=== PATIENT | female | born 1990 | race American Indian/Alaskan Native ===

== ENCOUNTER 2017-08-19 18:46 | Emergency (ER) | payer SELFPAY ==
--- NOTE | 2017-08-19 21:23 | Emergency Department Report ---
ED Psych HPI - General Stated Complaint: SUICIDAL Time Seen by Provider: 08/19/17 20:27 - History of Present Illness MD Complaint: suicidal ideation, feels depressed -: days(s) (1) Associated Psychiatric Symptoms: suicidal ideation Quality: constant Improves With: none Worsens With: none Associated Symptoms: denies: confusion, headache, shortness of breath, nausea, vomiting Treatments Prior to Arrival: placed on mental he If Self Harm: self-inflicted trauma (patient has cut her left arm numerous times. Several of these cuts do require closure. Patient states her boyfriend broke up with her in the last several days and this is the impetus for her actions) - Related Data Previous Rx's Medication Instructions Recorded Last Taken Type Ibuprofen [Motrin] 600 mg PO Q8H PRN #10 tablet 08/19/17 Unknown Rx ED Review of Systems ROS: Stated complaint: SUICIDAL Other details as noted in HPI Comment: All other systems reviewed and negative ED Past Medical Hx - Medications Home Medications: Home Medications Medication Instructions Recorded Confirmed Last Taken Type Ibuprofen [Motrin] 600 mg PO Q8H PRN #10 tablet 08/19/17 Unknown Rx ED Physical Exam - General General appearance: alert, in no apparent distress - Head Head exam: Present: atraumatic, normocephalic - Eye Eye exam: Present: normal appearance - ENT ENT exam: Present: mucous membranes moist - Neck Neck exam: Present: normal inspection - Respiratory Respiratory exam: Present: normal lung sounds bilaterally. Absent: respiratory distress - Cardiovascular Cardiovascular Exam: Present: regular rate, normal rhythm. Absent: systolic murmur, diastolic murmur, rubs, gallop - GI/Abdominal GI/Abdominal exam: Present: soft, normal bowel sounds - Extremities Exam Extremities exam: Present: normal inspection, other (there are numerous superficial abrasions as well as superficial lacerations on the left forearm approximate 4 of these areas do require closure with there are at least Dermabond.) - Back Exam Back exam: Present: normal inspection - Neurological Exam Neurological exam: Present: alert, oriented X3 - Psychiatric Psychiatric exam: Present: normal affect, depressed - Skin Skin exam: Present: warm, dry, intact, normal color. Absent: rash ED Course Vital Signs 08/19/17 22:38 Temperature 98.3 F Pulse Rate 71 Respiratory 18 Rate Blood Pressure 122/81 [Left] O2 Sat by Pulse 99 Oximetry - Laceration /Wound Repair Left Upper Volar Arm Wound Location: upper extremity Wound Length (cm): 8 (there are approximately 506 lacerations that need repair) Wound's Depth, Shape: superficial Wound Explored: clean Wound Repaired With: Steri-strips, Dermabond Sterile Dressing Applied?: Yes ED Medical Decision Making - Lab Data Result diagrams: 08/19/17 21:30 08/19/17 21:30 - Medical Decision Making Buck is a 27-year-old female who has a history of depression and cutting who cut herself several times today secondary to a boyfriend breaking up with her. Patient is depressed but is denying being suicidal at this time. Patient was seen by psych evaluators today and she was deemed not a candidate for 1013. Critical care attestation.: If time is entered above; I have spent that time in minutes in the direct care of this critically ill patient, excluding procedure time. ED Disposition Clinical Impression: Self mutilating behavior, Laceration Depressed Qualifiers: Depression Type: unspecified Qualified Code(s): F32.9 - Major depressive disorder, single episode, unspecified Disposition: DC-01 TO HOME OR SELFCARE Is pt being admited?: No Does the pt Need Aspirin: No Condition: Stable Instructions: Laceration (ED), Skin Adhesive Care (ED) Prescriptions: Ibuprofen [Motrin] 600 mg PO Q8H PRN #10 tablet PRN Reason: Pain Referrals: PRIMARY CARE, [Primary Care Provider] - 3-5 Days
[2017-08-19] MEDS ORDERED: MOTRIN PO ONE (21:24)
[2017-08-19] MEDS ORDERED: NACL 0.9% 500 ML IR ONE (21:42)
[2017-08-19 21:44] LABS: Basophils # (Auto) 0.1 K/mm3 (0.0-0.1); Eosinophils # (Auto) 0.3 K/mm3 (0.0-0.4); Eosinophils % (Auto) 3.2 % (0.0-4.3); Hematocrit 38.5 % (30.3-42.9); Hemoglobin 12.4 gm/dl (10.1-14.3); Lymphocytes # (Auto) 2.5 K/mm3 (1.2-5.4); Lymphocytes % (Auto) 31.2 % (13.4-35.0); Mean Corpuscular HGB Conc 32 % (30-34); Mean Corpuscular Hemoglobin 28 pg (28-32); Mean Corpuscular Volume 85 fl (79-97); Monocytes # (Auto) 0.6 K/mm3 (0.0-0.8); Monocytes % (Auto) 7.3 % (0.0-7.3); Platelet Count 257 K/mm3 (140-440); Red Blood Count 4.52 M/mm3 (3.65-5.03); Red Cell Distribution Width 13.1 % (13.2-15.2)
[2017-08-19 22:02] LABS: BUN/Creatinine Ratio 20; Blood Urea Nitrogen 10 mg/dL (7-17); Calcium 9.2 mg/dL (8.4-10.2); Hemolysis Index 3
[2017-08-19 22:39] VITALS: BP 122/81
[2017-08-20 01:49] LABS: Bacteria,Urine 1+ /HPF (Negative); Bilirubin,Urine NEG (Negative); Blood,Urine NEG (Negative); Color,Urine Yellow (Yellow); Mucus,Urine FEW /HPF; Protein,Urine <15 mg/dL mg/dL (Negative); Urobilinogen,Urine < 2.0 mg/dL (<2.0)
[2017-08-20 01:56] LABS: Amphetamine Screen,Urine PRESUMPTIVE NEGATIVE; Benzodiazepines Screen,Urine PRESUMPTIVE NEGATIVE; Cannabinoid Screen,Urine PRESUMPTIVE NEGATIVE; Cocaine Screen,Urine PRESUMPTIVE NEGATIVE; Methadone Screen,Urine PRESUMPTIVE NEGATIVE; Opiate Screen,Urine PRESUMPTIVE NEGATIVE
[2017-08-20 02:15] LABS: RBC,Urine < 1.0 /HPF (0.0-6.0)
== END 2017-08-20 00:06 | disposition home or self-care (01) ==
LOC: ED 18:46
DX: S41.112A Laceration without foreign body of left upper arm, initial encounter (principal); F32.9 Major depressive disorder, single episode, unspecified; T14.91XA Suicide attempt, initial encounter; X78.8XXA Intentional self-harm by other sharp object, initial encounter; Y93.89 Activity, other specified; Y92.89 Other specified places as the place of occurrence of the external cause; Y99.8 Other external cause status; Z91.5 Personal history of self-harm
CPT/HCPCS: 12004; 36415; 80048; 80307; 81001; 84703; 85025; 99284; G0480; 80320

== ENCOUNTER 2019-01-25 22:39 | Emergency (ER) | payer SELFPAY ==
[2019-01-25 23:18] LABS: Basophils # (Auto) 0.1 K/mm3 (0.0-0.1); Basophils % (Auto) 0.6 % (0.0-1.8); Eosinophils % (Auto) 0.5 % (0.0-4.3); Hematocrit 32.8 % (30.3-42.9); Hemoglobin 11.2 gm/dl (10.1-14.3); Lymphocytes # (Auto) 1.4 K/mm3 (1.2-5.4); Lymphocytes % (Auto) 13.8 % (13.4-35.0); Mean Corpuscular HGB Conc 34 % (30-34); Mean Corpuscular Volume 81 fl (79-97); Monocytes # (Auto) 1.2 K/mm3 (0.0-0.8); Monocytes % (Auto) 12.5 % (0.0-7.3); Platelet Count 374 K/mm3 (140-440); Red Blood Count 4.05 M/mm3 (3.65-5.03); Red Cell Distribution Width 14.2 % (13.2-15.2)
[2019-01-25 23:31] LABS: Alanine Aminotransferase 9 units/L (7-56); Albumin 3.8 g/dL (3.9-5); BUN/Creatinine Ratio 10; Blood Urea Nitrogen 5 mg/dL (7-17); Hemolysis Index 3
[2019-01-25] MEDS ORDERED: PEPCID IV ONE (23:58)
[2019-01-25] MEDS ORDERED: MORPHINE IV ONE (23:58)
[2019-01-25] MEDS ORDERED: ZOFRAN IV ONE (23:58)
[2019-01-26 00:28] LABS: Bacteria,Urine 2+ /HPF (Negative); Bilirubin,Urine NEG (Negative); Blood,Urine NEG (Negative); Color,Urine Amber (Yellow); Hyaline Casts,Urine 2 /LPF; Mucus,Urine 3+ /HPF
[2019-01-26] MEDS ORDERED: K-DUR PO ONE (01:31)
[2019-01-26] MEDS ORDERED: NACL 0.9% 1000 ML 1,000 ML IV ONE (01:32)
[2019-01-26] MEDS ORDERED: TYLENOL PO PRN (02:15)
[2019-01-26] MEDS ORDERED: NACL 0.9% 1000 ML IV ONE (02:15)
[2019-01-26] MEDS ORDERED: ZOFRAN ONE (02:32)
[2019-01-26] MEDS ORDERED: MORPHINE ONE (02:34)
--- NOTE | 2019-01-26 03:44 | Cat Scan Report ---
. CT of the abdomen and pelvis with contrast INDICATION: Right lower quadrant mass COMPARISON: None FINDINGS: Lung bases are clear. The liver, spleen, pancreas, adrenal glands and kidneys all appear no rmal. No definite gallbladder or biliary tree abnormality. No fluid or adenopathy in the upper abdome n. CT of the pelvis shows an 8.2 x 7.5 cm right lower quadrant mass. The shows both cystic and solid, en hancing components as well as peripheral calcification. There is surrounding fluid and inflammatory t issue as well as satellite lesions. There is moderate free fluid in the pelvis as well. The uterus an d left ovary show no definite abnormalities. There is no bowel obstruction. Suspicious of peritoneal implants in the pelvis as well. No adenopathy is seen. No skeletal metastases identified. IMPRESSION: While this is a young patient the CT findings suggest malignant ovarian neoplasm. Automated exposure control was utilized to diminish radiation dose. Signer Name: Isael Reyes MD Signed: 01/26/2019 3:40 AM Workstation Name: [id number]
[2019-01-26] MEDS: FLAGYL 500 MG/100 ML 500 MG/100 ML BAG IV SCH ×2 (05:13→06:33)
[2019-01-26] MEDS ORDERED: MAXIPIME/NS 2 GM/100 ML 2 GM/100 ML BAG IV SCH (06:00)
--- NOTE | 2019-01-26 06:32 | Emergency Department Report ---
ED Abdominal Pain HPI - General Chief Complaint: Abdominal Pain Stated Complaint: RIGHT LOWER ABD PAIN Time Seen by Provider: 01/25/19 23:40 Source: patient Mode of arrival: Ambulatory Limitations: No Limitations - History of Present Illness Initial Comments: Patient is nulliparous 28-year-old -British female with a medical history presents with a ED with acute onset of severe right lower quadrant pain that radiates to the suprapubic area, with nausea, vomiting, chills and fever for the last 2 days. Patient states that she initially experienced similar symptom over 2 months ago and was treated at the [facility] ER. Patient states that during that visit she was diagnosed with right lower quadrant mass under his problem. Transferred to [facility] where she was admitted for one week and underwent a surgical procedure that placed a draining tube on the right lower quadrant mass or abscess to drain it. Patient states that she was thereafter discharged from the home with a draining tube in place. Patient states that subsequently fell off and the wound sealed off. Patient states that the pain started getting worse and she ended up going to [facility] emergency department again where abdomen pelvis CT scan with contrast was performed which showed that the mass had increase in size and she was advised to follow-up at the [facility] where she had previously been evaluated for the same. Patient states that she didn't call the blood came back home and has been taking pain medications to alleviate her pain. Patient states that in the last 2 days the swelling and pain in the right lower quadrant area has worsened. Patient denies diarrhea, dizziness, low back pain, vaginal bleeding, vaginal discharge, chest pain, shortness of breath or cough and headache MD Complaint: abdominal pain, other (fever, chills, nausea and vomiting) -: Gradual, month(s) (2) Location: RLQ, suprapubic Radiation: RLQ, suprapubic Migration to: no migration Severity scale (0 -10): 7 Quality: aching, sharp Consistency: constant Improves With: nothing Worsens With: bowel movement, vomiting, movement Associated Symptoms: denies other symptoms, nausea, vomiting, fever, chills. denies: diarrhea, constipation, dysuria, hematemesis, hematochezia, melena, anorexia, other - Related Data Previous Rx's Medication Instructions Recorded Last Taken Type Ibuprofen [Motrin] 600 mg PO Q8H PRN #10 tablet 08/19/17 Unknown Rx Allergies Allergy/AdvReac Type Severity Reaction Status Date / Time No Known Allergies Allergy Verified 01/25/19 22:49 ED Review of Systems ROS: Stated complaint: RIGHT LOWER ABD PAIN Other details as noted in HPI Constitutional: chills, fever, weakness Eyes: denies: eye pain, eye discharge, vision change ENT: denies: ear pain, throat pain Respiratory: denies: cough, shortness of breath, wheezing Cardiovascular: denies: chest pain, palpitations Endocrine: no symptoms reported Gastrointestinal: abdominal pain (RLQ), nausea, vomiting. denies: diarrhea, constipation, hematemesis Genitourinary: denies: urgency, dysuria, discharge Musculoskeletal: denies: back pain, joint swelling, arthralgia Skin: denies: rash, lesions Neurological: denies: headache, weakness, paresthesias Psychiatric: denies: anxiety, depression Hematological/Lymphatic: denies: easy bleeding, easy bruising ED Past Medical Hx - Past Medical History Previous Medical History?: No Additional medical history: self mutilation - Surgical History Past Surgical History?: Yes Additional Surgical History: drain to mass but had fallen out - Social History Smoking Status: Never Smoker Substance Use Type: None - Medications Home Medications: Home Medications Medication Instructions Recorded Confirmed Last Taken Type Ibuprofen [Motrin] 600 mg PO Q8H PRN #10 tablet 08/19/17 Unknown Rx ED Physical Exam - General Limitations: No Limitations General appearance: alert, in no apparent distress - Head Head exam: Present: atraumatic, normocephalic, normal inspection - Eye Eye exam: Present: normal appearance, PERRL, EOMI. Absent: scleral icterus, conjunctival injection, nystagmus Pupils: Present: normal accommodation - ENT ENT exam: Present: normal exam, normal orophraynx, mucous membranes moist, TM's normal bilaterally, normal external ear exam - Neck Neck exam: Present: normal inspection, full ROM. Absent: tenderness - Respiratory Respiratory exam: Present: normal lung sounds bilaterally. Absent: respiratory distress, wheezes, rales, rhonchi, chest wall tenderness, accessory muscle use, decreased breath sounds, prolonged expiratory - Cardiovascular Cardiovascular Exam: Present: normal rhythm, tachycardia, normal heart sounds. Absent: systolic murmur, diastolic murmur, rubs, gallop - GI/Abdominal GI/Abdominal exam: Present: soft, tenderness (rlq), guarding, rebound, rigid, normal bowel sounds. Absent: hyperactive bowel sounds, hypoactive bowel sounds, organomegaly, mass - Rectal Rectal exam: Present: deferred - Extremities Exam Extremities exam: Present: normal inspection, full ROM, normal capillary refill - Back Exam Back exam: Present: normal inspection, full ROM. Absent: tenderness, CVA tenderness (R), CVA tenderness (L), muscle spasm, paraspinal tenderness, vertebral tenderness - Neurological Exam Neurological exam: Present: alert, oriented X3, CN II-XII intact, normal gait, reflexes normal - Psychiatric Psychiatric exam: Present: normal affect, normal mood, anxious - Skin Skin exam: Present: warm, dry, intact, normal color. Absent: rash ED Course Vital Signs 01/25/19 01/25/19 01/26/19 22:47 23:44 05:00 Temperature 100.4 F H 97.9 F Pulse Rate 148 H 129 H 107 H Respiratory 24 18 20 Rate Blood Pressure 129/78 Blood Pressure 123/79 112/70 [Left] O2 Sat by Pulse 99 100 100 Oximetry - Reevaluation(s) Reevaluation #1: 01/26/19 06:34 This is a 28-year-old -British female who presented to the ED with acute and persistent right lower quadrant pain. In the ED, patient is alert and oriented 3 and is not imminent distress but pain, tachycardic and febrile in triage. Labs were drawn and abdomen and pelvis CT scan with contrast was ordered, and the patient was treated for pain in the ED as well as fever. Patient was treated as a septic patient was on the right or signs in the past medical history and physical exam findings. On reevaluation, patient's pain is well-controlled with medications, and the fever has resolved with medications. Lab test results were reviewed and are non-actionable except for acute hyponatremia 136 mmol per liter and acute hypokalemia or 3.0 mmol per liter. Patient also received normal saline IV bolus with potassium chloride 40 mEq IV. Patient was treated in the ED with metronidazole 500 mg IV 1 and Cefepime 2 g IV for the suspected intra-abdominal abscess. Abdomen pelvis CT scan with contrast shows an 8.2 x 7.5 cm right lower quadrant mass. It also shows that the masses both cystic and solid, enhancing component as well as peripheral calcification. There is surrounding fluid and inflammatory tissue as well as satellite lesions. There is moderate fluid in the pelvis as well. The uterus and left ovary showed no definitive abnormalities. There is no bowel obstruction. There is however suspicious peritoneal implants in the pelvis. There is no adenopathy or skeletal metastasis identified. These findings were discussed with the ED attending physician Dr. Seth was advised that the patient may have to be transferred back to [facility] where general surgeon is stationed at. The transfer center for [facility] was consulted and the patient's case was discussed promptly with Dr. Villagomez, they caused his physician strategy consultant who accepted the patient on behalf of our Dr. Francisco the general surgeon for the patient. Dr. Villagomez promptly accepted the patient at [facility] on behalf of Dr. Francisco the general surgeon for the patient. Patient was therefore transferred to [facility] for further evaluation by Dr. Francisco. ED Medical Decision Making - Lab Data Result diagrams: 01/25/19 22:54 01/25/19 22:54 - Radiology Data Radiology results: report reviewed, image reviewed Abdomen pelvis CT scan with contrast shows an 8.2 x 7.5 cm right lower quadrant mass. It also shows that the masses both cystic and solid, enhancing component as well as peripheral calcification. There is surrounding fluid and inflammatory tissue as well as satellite lesions. There is moderate fluid in the pelvis as well. The uterus and left ovary showed no definitive abnormalities. There is no bowel obstruction. There is however suspicious peritoneal implants in the pelvis. There is no adenopathy or skeletal meta stasis identified. - Medical Decision Making This is a 28-year-old -British female who presented to the ED with acute and persistent right lower quadrant pain. In the ED, patient is alert and oriented 3 and is not imminent distress but pain, tachycardic and febrile in triage. Labs were drawn and abdomen and pelvis CT scan with contrast was ordered, and the patient was treated for pain in the ED as well as fever. Patient was treated as a septic patient was on the right or signs in the past medical history and physical exam findings. On reevaluation, patient's pain is well-controlled with medications, and the fever has resolved with medications. Lab test results were reviewed and are non-actionable except for acute hyponatremia 136 mmol per liter and acute hypokalemia or 3.0 mmol per liter. Patient also received normal saline IV bolus with potassium chloride 40 mEq IV. Patient was treated in the ED with metronidazole 500 mg IV 1 and Cefepime 2 g IV for the suspected intra-abdominal abscess. Abdomen pelvis CT scan with contrast shows an 8.2 x 7.5 cm right lower quadrant mass. It also shows that the masses both cystic and solid, enhancing component as well as peripheral calcification. There is surrounding fluid and inflammatory tissue as well as satellite lesions. There is moderate fluid in the pelvis as well. The uterus and left ovary showed no definitive abnormalities. There is no bowel obstruction. There is however suspicious peritoneal implants in the pelvis. There is no adenopathy or skeletal metastasis identified. These findings were discussed with the ED attending physician Dr. Seth was advised that the patient may have to be transferred back to [facility] where general surgeon is stationed at. The transfer center for [facility] was consulted and the patient's case was discussed promptly with Dr. Villagomez, they caused his physician strategy consultant who accepted the patient on behalf of our Dr. Francisco the general surgeon for the patient. Dr. Villagomez promptly accepted the patient at [facility] on behalf of Dr. Francisco the general surgeon for the patient. Patient was therefore transferred to [facility] for further evaluation by Dr. Francisco. - Differential Diagnosis Sepsis due to intraabdominal abscess; Ovarian cyst; Appendicitis, neoplasm Critical care attestation.: If time is entered above; I have spent that time in minutes in the direct care of this critically ill patient, excluding procedure time. ED Disposition Clinical Impression: Intra-abdominal abscess post-procedure, Fever and chills Sepsis Qualifiers: Sepsis type: sepsis due to unspecified organism Sepsis acute organ dysfunction status: without acute organ dysfunction Qualified Code(s): A41.9 - Sepsis, unspecified organism Abdominal pain Qualifiers: Abdominal location: right lower quadrant Qualified Code(s): R10.31 - Right lower quadrant pain Disposition: DC/TX-70 ANOTHER TYPE HLTHCARE Is pt being admited?: Yes Does the pt Need Aspirin: No Condition: Stable Instructions: Abdominal Pain (ED) Referrals: JUANITA CHAVEZ MD [Primary Care Provider] - 3-5 Days Time of Disposition: 06:00 Print Language: HONDURAN
[2019-01-26] MEDS ORDERED: NS/KCL 40MEQ 40 MEQ/1,000 ML BAG IV SCH (07:00)
[2019-01-26] MEDS ORDERED: KCL 10MEQ/100ML 10 MEQ/100 ML BAG IV SCH (07:00)
[2019-01-26 07:27] VITALS: BP 117/60
== END 2019-01-26 07:27 | disposition other institution (70) ==
LOC: ED 22:39
DX: K68.11 Postprocedural retroperitoneal abscess (principal); A41.9 Sepsis, unspecified organism; Z98.890 Other specified postprocedural states; Z79.899 Other long term (current) drug therapy
CPT/HCPCS: 36415; 74177; 80053; 81001; 82140; 83690; 84703; 85025; 87040; 96361; 96365; 96366; 96375; 99285; J0692; J2270; J2405; J7030; Q9967

== ENCOUNTER 2019-10-12 15:18 | Inpatient (IN) | payer MEDICAID ==
--- NOTE | 2019-10-12 15:29 | Emergency Department Report ---
Stated Complaint: VAGINAL DISCHARGE Time Seen by Provider: 10/12/19 15:24 - HPI History of Present Illness: 29 y/o white male comes for intermittent chest pain times 8 months. Worst with lifting himself or certain movement. Has not taking anything for pain. . Denies any drug use or SOB does smoke cigarettes daily. MSE screening note: Focused history and physical exam performed. Due to findings the following was ordered: 29 y/o white male comes for intermittent chest pain times 8 months. Worst with lifting himself or certain movement. Has not taking anything for pain. . Denies any drug use or SOB does smoke cigarettes daily. Recommend to try taking Tylenol and or Ibuprofen. ED Disposition for MSE Condition: Stable
[2019-10-12] MEDS ORDERED: ONDANSETRON 4 MG/2 ML INJ IV ONE (15:40)
[2019-10-12] MEDS ORDERED: fentaNYL 100 MCG/2 ML INJ IV ONE (15:40)
--- NOTE | 2019-10-12 15:58 | Emergency Department Report ---
HPI - General Chief Complaint: Urogenital-Female Time Seen by Provider: 10/12/19 15:24 - HPI HPI: Room 20 The patient is a 29-year-old female present with a chief complaint of back pain and vaginal discharge. The patient has a history of ovarian cancer status post ovarian mass removal and hysterectomy. Patient states she has not yet began chemotherapy or radiation. Patient states she continues to have back pain since 09/25/2019 when she had her hysterectomy. Patient states she cannot recall what the physician attributed her back pain to. The patient states she also has had vaginal discharge for the past 3 to 4 days and nausea vomiting for several weeks. Patient denies any history of fever at home but does admit to dysuria. ED Past Medical Hx - Past Medical History Previous Medical History?: Yes Hx of Cancer: Yes (Ovarian cancer) Additional medical history: self mutilation - Surgical History Past Surgical History?: Yes Additional Surgical History: drain to mass but had fallen out, hysterectomy, removal of left ovarian mass 09/25/2019. - Family History Family history: no significant - Social History Smoking Status: Never Smoker Substance Use Type: None (Denies illicit drug use), Alcohol (Occasional) - Medications Home Medications: Home Medications Medication Instructions Recorded Confirmed Last Taken Type No Known Home Medications [No 01/26/19 01/26/19 Unknown History Reported Home Medications] ED Review of Systems ROS: Stated complaint: VAGINAL DISCHARGE Other details as noted in HPI Constitutional: denies: fever Respiratory: no symptoms reported Cardiovascular: denies: chest pain Endocrine: no symptoms reported Gastrointestinal: nausea, vomiting. denies: abdominal pain Genitourinary: dysuria, discharge Musculoskeletal: back pain Neurological: denies: headache Physical Exam - Physical Exam Vital Signs: Vital Signs 10/12/19 15:29 Temperature 98.5 F Pulse Rate 99 H Respiratory 18 Rate Blood Pressure 140/88 O2 Sat by Pulse 100 Oximetry Physical Exam: GENERAL: The patient is well-developed well-nourished female lying on stretcher not appearing to be in acute distress. [] HEENT: Normocephalic. Atraumatic. Extraocular motions are intact. Patient has moist mucous membranes. NECK: Supple. Trachea midline CHEST/LUNGS: Clear to auscultation. There is no respiratory distress noted. HEART/CARDIOVASCULAR: Regular. There is no tachycardia. There is no gallop rub or murmur. ABDOMEN: Abdomen is soft, with tenderness to palpation in the left upper quadrant. Patient has normal bowel sounds. There is no abdominal distention. SKIN: There is no rash. There is no edema. There is no diaphoresis. NEURO: The patient is awake, alert, and oriented. The patient is cooperative. The patient has no focal neurologic deficits. The patient has normal speech MUSCULOSKELETAL: There is no evidence of acute injury. ED Course Vital Signs 10/12/19 15:29 Temperature 98.5 F Pulse Rate 99 H Respiratory 18 Rate Blood Pressure 140/88 O2 Sat by Pulse 100 Oximetry - EJ/Peripheral Line Neck R Time Out Performed: Yes Indications: nurses unable to establis Skin Cleansed in Sterile Fashion: Yes Size: 20 Dressing Placed: Tegaderm Patient Tolerated Procedure: no complications ED Medical Decision Making - Lab Data Result diagrams: 10/12/19 16:24 10/12/19 16:24 Laboratory Tests 10/12/19 10/12/19 10/12/19 15:55 16:24 16:24 WBC 7.6 RBC 4.04 Hgb 10.5 Hct 31.5 MCV 78 L MCH 26 L MCHC 33 RDW 14.3 Plt Count 459 H Add Manual Diff Complete Total Counted 100 Seg Neuts % (Manual) 74.0 H Band Neutrophils % 0 Lymphocytes % (Manual) 15.0 Reactive Lymphs % (Man) 0 Monocytes % (Manual) 7.0 Eosinophils % (Manual) 4.0 Basophils % (Manual) 0 Metamyelocytes % 0 Myelocytes % 0 Promyelocytes % 0 Blast Cells % 0 Nucleated RBC % Not Reportable Seg Neutrophils # Man 5.6 Band Neutrophils # 0.0 Lymphocytes # (Manual) 1.1 L Abs React Lymphs (Man) 0.0 Monocytes # (Manual) 0.5 Eosinophils # (Manual) 0.3 Basophils # (Manual) 0.0 Metamyelocytes # 0.0 Myelocytes # 0.0 Promyelocytes # 0.0 Blast Cells # 0.0 WBC Morphology Not Reportable Hypersegmented Neuts Not Reportable Hyposegmented Neuts Not Reportable Hypogranular Neuts Not Reportable Smudge Cells Not Reportable Toxic Granulation Not Reportable Toxic Vacuolation Not Reportable Dohle Bodies Not Reportable Pelger-Huet Anomaly Not Reportable Madhav Rods Not Reportable Platelet Estimate Not Reportable Clumped Platelets Not Reportable Plt Clumps, EDTA Not Reportable Large Platelets Not Reportable Giant Platelets Not Reportable Platelet Satelliting Not Reportable Plt Morphology Comment Not Reportable RBC Morphology Normal Dimorphic RBCs Not Reportable Polychromasia Not Reportable Hypochromasia Not Reportable Poikilocytosis Not Reportable Anisocytosis Not Reportable Microcytosis Not Reportable Macrocytosis Not Reportable Spherocytes Not Reportable Pappenheimer Bodies Not Reportable Sickle Cells Not Reportable Target Cells Not Reportable Tear Drop Cells Not Reportable Ovalocytes Not Reportable Helmet Cells Not Reportable [place] Bodies Not Reportable [place] Rings Not Reportable [place] Cells Not Reportable Bite Cells Not Reportable Crenated Cell Not Reportable Elliptocytes Not Reportable Acanthocytes (Spur) Not Reportable Rouleaux Not Reportable Hemoglobin C Crystals Not Reportable Schistocytes Not Reportable Malaria parasites Not Reportable Jose Bodies Not Reportable Hem Pathologist Commnt No Sodium 134 L Potassium 4.5 Chloride 94.5 L Carbon Dioxide 18 L Anion Gap 26 BUN 11 Creatinine 0.6 L Estimated GFR > 60 BUN/Creatinine Ratio 18 Glucose 86 Calcium 9.4 Total Bilirubin 8.60 H AST 244 H ALT 196 H Alkaline Phosphatase 743 H Total Protein 8.3 H Albumin 3.7 L Albumin/Globulin Ratio 0.8 Urine Color Susie Urine Turbidity Clear Urine pH 6.0 Ur Specific [place] 1.031 H Urine Protein 100 mg/dl Urine Glucose (UA) Neg Urine Ketones 20 Urine Blood Neg Urine Nitrite Neg Urine Bilirubin Mod Urine Ictotest Positive Urine Urobilinogen 2.0 Ur Leukocyte Esterase Neg Urine WBC (Auto) 11.0 H Urine RBC (Auto) 107.0 U Epithel Cells (Auto) 1.0 Urine Bacteria (Auto) 1+ Urine Mucus 2+ Urine HCG, Qual Negative - Radiology Data Radiology results: report reviewed (CT abdomen pelvis), image reviewed (CT a bdomen pelvis) Findings [facility] [address] [place] [address] Cat Scan Report Signed Patient: ANGELO MALDONADO MR#: [id number] : 1990 Acct:[id number] Age/Sex: 29 / F ADM Date: 10/12/19 Loc: ED Attending Dr: Ordering Physician: DEUCE CHERRY MD Date of Service: 10/12/19 Procedure(s): CT abdomen pelvis w con Accession Number(s): [id number] cc: DEUCE CHERRY MD CT abdomen pelvis w con INDICATION: History of ovarian cancer, jaundice, vaginal discharge. TECHNIQUE: All CT scans at this location are performed using the following dose modulation technique: Automated exposure control. Helical slices were obtained through the abdomen and pelvis. 100 cc of Omnipaque 300 is administered. COMPARISON: CT scan dated 01/25/2019 FINDINGS: Abdomen: There is a small right pleural effusion. There are new hypodense lesions in the liver characteristic of metastases. There is significant intrahepatic biliary dilatation which I suspect is a result of either a abnormal node or mass in the lizzie hepatis obstructing the proximal common duct. There is a small amount of ascites in the upper abdomen adjacent to the liver and spleen. There is abnormal soft tissue density in the anterior mesentery in the left upper quadrant small amount in the midabdomen characteristic of carcinomatosis. There is retroperitoneal adenopathy and periaortic and aortocaval location. There is moderate right hydroureteronephrosis. Pelvis: There is ascites in the pelvis. There is abnormal soft tissue density along the surface of the urinary bladder characteristic of carcinomatosis. There is mild iliac chain adenopathy and pelvic sidewall adenopathy. On review of bone windows no acute osseous abnormalities are seen. IMPRESSION: 1. There is been interval development of hepatic metastatic disease as well as carcinomatosis in the abdomen and pelvis. There is small amount of ascites most of which is in the pelvis. There is retroperitoneal adenopathy and mild iliac chain and pelvic sidewall adenopathy. There is moderate right hydroureteronephrosis likely a result of retroperitoneal disease obstructing the ureter. There is significant intrahepatic biliary dilatation which appears to be a result of either an abnormal lymph node or implant region of the lizzie hepatis obstructing the proximal common duct. There is a small right pleural effusion. Signer Name: Matt Brannon MD Signed: 10/12/2019 6:15 PM Workstation Name: [id number] Transcribed By: Dictated By: Matt Brannon MD Electronically Authenticated By: Matt Brannon MD Signed Date/Time: 10/12/191814 DD/ 07 TD/TT: - Differential Diagnosis vaginitis, uti, pyelonephritis Critical care attestation.: If time is entered above; I have spent that time in minutes in the direct care of this critically ill patient, excluding procedure time. ED Disposition Clinical Impression: Liver metastases, Jaundice, Hydroureteronephrosis, Vaginal discharge, UTI (urinary tract infection) Disposition: OP ADMIT IP TO THIS HOSP Is pt being admited?: Yes Does the pt Need Aspirin: No Condition: Fair Time of Disposition: 18:27 (Hospitalist notified (Dr. Montoya))
[2019-10-12 16:16] LABS: Bacteria,Urine 1+ /HPF (Negative); Bilirubin,Urine MOD (Negative); Blood,Urine NEG (Negative); Color,Urine Amber (Yellow); Mucus,Urine 2+ /HPF
[2019-10-12] MEDS ORDERED: SODIUM CHLORIDE 0.9% 1000 ML 1,000 ML IV ONE (16:18)
[2019-10-12 16:22] LABS: HCG Qualitative,Urine Negative (Negative)
[2019-10-12 16:37] LABS: Ictotest,Urine Positive (Negative)
[2019-10-12 16:58] LABS: Hematocrit 31.5 % (30.3-42.9); Hemoglobin 10.5 gm/dl (10.1-14.3); Mean Corpuscular HGB Conc 33 % (30-34); Mean Corpuscular Volume 78 fl (79-97); Platelet Count 459 K/mm3 (140-440); Red Blood Count 4.04 M/mm3 (3.65-5.03); Red Cell Distribution Width 14.3 % (13.2-15.2)
[2019-10-12 17:19] LABS: Alanine Aminotransferase 196 units/L (7-56); Albumin 3.7 g/dL (3.9-5); BUN/Creatinine Ratio 18; Blood Urea Nitrogen 11 mg/dL (7-17); Calcium 9.4 mg/dL (8.4-10.2); Hemolysis Index 35
[2019-10-12 18:01] LABS: Basophils % (Manual) 0 % (0.0-1.8); Total Cells Counted 100
[2019-10-12 18:02] LABS: RBC Morphology Normal
--- NOTE | 2019-10-12 18:20 | Cat Scan Report ---
CT abdomen pelvis w con INDICATION: History of ovarian cancer, jaundice, vaginal discharge. TECHNIQUE: All CT scans at this location are performed using the following dose modulation technique: Automated exposure control. Helical slices were obtained through the abdomen and pelvis. 100 cc of Omnipaque 30 0 is administered. COMPARISON: CT scan dated 01/25/2019 FINDINGS: Abdomen: There is a small right pleural effusion. There are new hypodense lesions in the liver charac teristic of metastases. There is significant intrahepatic biliary dilatation which I suspect is a res ult of either a abnormal node or mass in the lizzie hepatis obstructing the proximal common duct. There is a small amount of ascites in the upper abdomen adjacent to the liver and spleen. There is abnormal soft tissue density in the anterior mesentery in the left upper quadrant small amou nt in the midabdomen characteristic of carcinomatosis. There is retroperitoneal adenopathy and periao rtic and aortocaval location. There is moderate right hydroureteronephrosis. Pelvis: There is ascites in the pelvis. There is abnormal soft tissue density along the surface of th e urinary bladder characteristic of carcinomatosis. There is mild iliac chain adenopathy and pelvic s idewall adenopathy. On review of bone windows no acute osseous abnormalities are seen. IMPRESSION: 1. There is been interval development of hepatic metastatic disease as well as carcinomatosis in the abdomen and pelvis. There is small amount of ascites most of which is in the pelvis. There is retrope ritoneal adenopathy and mild iliac chain and pelvic sidewall adenopathy. There is moderate right hydroureteronephrosis likely a result of retroperitoneal disease obstructing the ureter. There is significant intrahepatic biliary dilatation which appears to be a result of either an abnorm al lymph node or implant region of the lizzie hepatis obstructing the proximal common duct. There is a small right pleural effusion. Signer Name: Matt Brannon MD Signed: 10/12/2019 6:15 PM Workstation Name: [id number]
--- NOTE | 2019-10-12 18:24 | History and Physical Report ---
History of Present Illness Chief complaint: My stomach hurts and I have vaginal discharge History of present illness: 29 YO Female with Ovarian Cancer, Self Mutilation, presents to ED for evaluation. Patient states that she has experienced abdominal pain as well as back pain over the past 2 weeks with progressively worsening symptoms over the past 3 to 4 days. Patient also reports that over the past 3 to 4 days she has experienced copious vaginal discharge. Patient reports that her pain is 46/10, intermittent, worsened with movement, not relieved with rest. EMS notified and upon arrival the patient was found to be in distress and subsequently transported to [facility] for further care and evaluation. Patient seen and evaluated in the emergency department. Patient underwent CT scan of the abdomen and pelvis and was found to have metastatic disease to the liver secondary to ovarian cancer, as well as carcinomatosis, acidosis, and vaginal discharge. Gynecology service consulted in ED. patient placed in observation status and admitted to medical floor. Patient treated with IV fluid resuscitation therapy, pain control and supportive care. Past History Past Medical History: cancer Past Surgical History: hysterectomy Social history: single, lives with family Family history: no significant family history (Reviewed) Medications and Allergies Allergies Allergy/AdvReac Type Severity Reaction Status Date / Time No Known Allergies Allergy Verified 01/25/19 22:49 Home Medications Medication Instructions Recorded Confirmed Last Taken Type No Known Home Medications [No 01/26/19 01/26/19 Unknown History Reported Home Medications] Review of Systems Constitutional: no weight loss, no fever, no sweats Ears, nose, mouth and throat: no ear pain, no ear discharge, no tinnitis, no decreased hearing, no nose pain, no nasal congestion Breasts: no change in shape, no swelling, no mass Cardiovascular: no chest pain, no orthopnea, no edema, no syncope, no shortness of breath Respiratory: no cough, no excessive sputum, no hemoptysis, no shortness of breath Gastrointestinal: abdominal pain, nausea, vomiting, no diarrhea, no change in bowel habits, no coffee ground emesis Genitourinary Female: no pelvic pain, no flank pain, no dysuria, no urinary frequency, no urgency Rectal: no pain, no incontinence, no bleeding Musculoskeletal: no neck stiffness, no neck pain, no shooting arm pain, no arm numbness/tingling Integumentary: no redness, no wounds, no jaundice, no boils Neurological: no transient paralysis, no weakness, no numbness, no tingling Psychiatric: no memory loss, no sleep disturbances, no insomnia, no hypersomnia, no change in appetite Endocrine: no heat intolerance, no excessive thirst, no polydipsia, no polyuria, no nocturia Hematologic/Lymphatic: no easy bleeding, no lymphadenopathy Allergic/Immunologic: no allergic rhinitis, no wheezing, no persistent infections, no anaphylaxis Exam - Constitutional Vitals: Temp Pulse Resp BP Pulse Ox 98.5 F 103 H 14 140/90 100 10/12/19 15:29 10/12/19 18:04 10/12/19 18:04 10/12/19 18:04 10/12/19 17:30 General appearance: Present: mild distress - EENT Eyes: Present: PERRL ENT: hearing intact, clear oral mucosa - Neck Neck: Present: supple, normal ROM - Respiratory Respiratory effort: normal Respiratory: bilateral: CTA - Cardiovascular Heart Sounds: Present: S1 & S2. Absent: rub, click - Extremities Extremities: pulses symmetrical, No edema Peripheral Pulses: within normal limits - Abdominal General gastrointestinal: Present: soft, non-tender, non-distended, normal bowel sounds Female genitourinary: Present: normal - Integumentary Integumentary: Present: clear, warm, dry - Musculoskeletal Musculoskeletal: gait normal, strength equal bilaterally - Psychiatric Psychiatric: appropriate mood/affect, intact judgment & insight - Neurologic Neurologic: CNII-XII intact, moves all extremities Results - Labs CBC & Chem 7: 10/12/19 16:24 10/12/19 16:24 Labs: Abnormal lab results 10/12/19 10/12/19 10/12/19 Range/Units 15:55 16:24 16:24 MCV 78 L (79-97) fl MCH 26 L (28-32) pg Plt Count 459 H (140-440) K/mm3 Seg Neuts % (Manual) 74.0 H (40.0-70.0) % Lymphocytes # (Manual) 1.1 L (1.2-5.4) K/mm3 Sodium 134 L (137-145) mmol/L Chloride 94.5 L (98-107) mmol/L Carbon Dioxide 18 L (22-30) mmol/L Creatinine 0.6 L (0.7-1.2) mg/dL Total Bilirubin 8.60 H (0.1-1.2) mg/dL AST 244 H (5-40) units/L ALT 196 H (7-56) units/L Alkaline Phosphatase 743 H (35-129) units/L Total Protein 8.3 H (6.3-8.2) g/dL Albumin 3.7 L (3.9-5) g/dL Ur Specific [place] 1.031 H (1.003-1.030) Urine WBC (Auto) 11.0 H (0.0-6.0) /HPF Assessment and Plan - Patient Problems (1) Primary cancer of ovary with widespread metastatic disease Current Visit: Yes Status: Acute Plan to address problem: CT scan of the abdomen and pelvis, bowel rest, IV fluid resuscitation therapy, gynecology service consult, outpatient oncology follow-up. Patient is pending initiation of chemotherapy as per patient. (2) Liver metastases Current Visit: Yes Status: Acute Plan to address problem: Supportive care, outpatient oncology follow-up. (3) DVT prophylaxis Current Visit: Yes Status: Acute Plan to address problem: SCD to bilateral lower extremities while in bed, patient is ambulatory
[2019-10-12] MEDS ORDERED: oxyCODONE /ACETAMINOPHEN 5-325MG TAB PO PRN (18:47)
[2019-10-12] MEDS ORDERED: ONDANSETRON 4 MG/2 ML INJ IV PRN (18:47)
[2019-10-12] MEDS: HYDROmorphone 1 MG/1 ML INJ IV PRN ×2 (18:54→23:06)
--- NOTE | 2019-10-12 22:58 | Event Note ---
Date: 10/12/19 Chart reviewed. Wet prep is negative and gc/chlm cultures are pending. AT this time it does not appear pt has any immediate need for general copyright clerk evaluation as she has copyright clerk onc follow up already scheduled. I would recommend at this time pt keep follow up with copyright clerk onc provider and f/u cultures that are pending on an out pt basis.
[2019-10-13] MEDS: HYDROmorphone 1 MG/1 ML INJ IV PRN ×5 (04:44→21:22)
[2019-10-13 05:54] LABS: Alanine Aminotransferase 160 units/L (7-56); BUN/Creatinine Ratio 15; Blood Urea Nitrogen 9 mg/dL (7-17); Hemolysis Index 5
--- NOTE | 2019-10-13 12:50 | Discharge Summary ---
Providers - Providers Date of Admission: 10/12/19 18:47 Date of discharge: 10/14/19 Attending physician: DAKOTA GIBSON 10/12/19 18:49 Consult to Physician [CONS] Routine Comment: Consulting Provider: BETZY SUTTON Physician Instructions: Reason For Exam: vaginal discharge Primary care physician: NUCLEAR CRITICALITY SAFETY ENGINEER Hospitalization Condition: Fair Hospital course: Patient is a 29 yo woman with a history of Ovarian Cancer s/p recent surgery at [facility] in September [address] Francisco and Self Mutilation who presents to [facility] ED with abdominal pains, back pains and vaginal discharge. Patient underwent CT scan of the abdomen and pelvis and was found to have metastatic disease to the liver secondary to ovarian cancer, as well as carcinomatosis, acidosis, and vaginal discharge. Gynecology service consulted in ED. Patient placed in observation status and admitted to medical floor. Patient treated with IV fluid resuscitation therapy, pain control and supportive care. She was seen by HAND CUTTER APPRENTICE who recommend patient return to her knife setter assembler oncologist. Patient needs to start chemotherapy, which is typically done as o utpatient. Nonetheless, I called her glue jointer feeder oncologist Dr. Maria Esther Francisco at [facility] and spoke with Sayda who will forward my information to Dr. Francisco. At the same time, Dr. Francisco paged me. She wants patient to go to [facility] under Hospital medicine on the Oncology floor. So, I called [phone] transfer center and spoke with Maricarmen who gave me a fax number [phone] to send patient face sheet. Then I called the floor to have them fax the facesheet. * CT abd/pelvis with contrast IMPRESSION: 1. There is been interval development of hepatic metastatic disease as well as carcinomatosis in the abdomen and pelvis. There is small amount of ascites most of which is in the pelvis. There is retroperitoneal adenopathy and mild iliac chain and pelvic side wall a denopathy. There is moderate right hydroureteronephrosis likely a result of retroperitoneal disease obstructing the ureter. There is significant intrahepatic biliary dilatation which appears to be a result of either an abnormal lymph node or implant region of the lizzie hepatis obstructing the proximal common duct. There is a small right pleural effusion. * Dr. Maria Esther Francisco Obstetrics & gynecology - gynecologic oncology [address] [place] [address] [address], [place] [address] * urology teacher WET prep no trichomonas, no yeast <20% clue cells seen * Urine culture no growth for 24 hours Primary cancer of ovary with widespread metastatic disease/carcinomatosis: glue jointer feeder recommendation noted Liver metastases with obstruction: will need GI involved Right hydronephrosis due to metastatic ovarian cancer: treat the Ovarian, need chemotherapy DVT prophylaxis: SCD 10/13/19: Multiple calls from transfer center Maricarmen and Dr. Francisco. Basically [facility] had a bed, then lost the bed. I reached out to GI, Dr. Marx, who planned to do an ERCP in the morning, I made patient NPO after midnight. Then [facility] center called me back after speaking with Dr. Francisco and they found a bed at [facility], so I spoke with the Hospitalist there, and Dr. Garcia agreed to accept patient for transfer to [facility]. 10/14/2019: Transfer line called me last night around 7:30pm with Hospitalist Dr. Crawford from [facility], to inform me they wanted patient there and they now have a bed at [facility]. Patient was accepted to [facility] and then our night time nurse saw a NPO after midnight order and WRONGLY assumed that patient was going for ERCP in the morning, so patient lost the bed at [facility]. GI did not order an ERCP or see the patient because she was suppose to go to [facility]. So, I called the transfer line this morning and spoke with Ashley, who was very rude. Bottom line: Patient lost a bed at [facility], so we must start the very difficult process all over again. Then Alcides, Transfer call center consultant, called me and told me that they do not have a bed a [facility]. Then I call, Dr. Francisco and gave her update. Then I called Dr. Marx, our GI, he will see in consultation today. [facility] transfer line, Ashley, called me back and said patient has been accepted to [facility] and they have a bed. The plan is that patient needs to have the ERCP/obstruction evaluation at [facility] in case there are complications; then she needs chemotherapy (which is not done here) at [facility]. Disposition: [facility] Disposition: DC/TX-70 ANOTHER TYPE HLTHCARE Time spent for discharge: 35 minutes Core Measure Documentation - Palliative Care Palliative Care/ Comfort Measures: Not Applicable - Core Measures Any of the following diagnoses?: none - VTE Discharge Requirements Deep Vein Thrombosis/Pulmonary Embolism Present on Admission: No Has pt received <5 days of overlap therapy or INR<2.0: No Anticoagulant overlap therapy prescribed at discharge: No Contraindication No Overlap Therapy order at DC: Not Indicated Exam - Physical Exam Narrative exam: Gen: chronic ill appearing, thin frial with gnosticism muscle wasting, NAD, Awake, Alert, Orientated HEENT: NCAT, EOMI, PERRL, OP Clear but dry crust on lips Neck: supple, no adenopathy, no thyromegaly, no JVD CVS/Heart: RRR, normal S1S2, pulses present bilaterally Chest/Lungs: CTA B, Symmetrical chest expansion, good air entry bilaterally GI/Abdomen: soft distended, midline surgical incision intact, Left side tender, +bowel sounds, no rebound /Bladder: no suprapubic tenderness, no CVA or paraspinal tenderness Extermity/Skin: no c/c/e, no obvious rash MSK: FROM x 4 Neuro: CN 2-12 grossly intact, no new focal deficits Psych: calm - Constitutional Vitals: Temp Pulse Resp BP Pulse Ox 98.2 F 85 20 137/91 99 10/13/19 12:24 10/13/19 12:24 10/13/19 12:24 10/13/19 12:24 10/13/19 12:24 Plan Activity: other (no strenous activity) Diet: advance as tolerated Additional Instructions: going to [facility] but follow up with Dr. Francisco when discharged. Dr. Maria Esther Francisco. Obstetrics & gynecology - gynecologic oncology. [address] [place] [id number]. [phone] Follow up with: PRIMARY CAREMD [Primary Care Provider] - 3-5 Days
--- NOTE | 2019-10-13 13:32 | Progress Note ---
Assessment and Plan Assessment and plan: Patient is a 29 yo woman with a history of Ovarian Cancer and Self Mutilation who presents to [facility] ED with abdominal pains, back pains and vaginal discharge. Patient underwent CT scan of the abdomen and pelvis and was found to have metastatic disease to the liver secondary to ovarian cancer, as well as c arcinomatosis, acidosis, and vaginal discharge. Gynecology service consulted in ED. Patient placed in observation status and admitted to medical floor. Patient treated with IV fluid resuscitation therapy, pain control and supportive care. She was seen by CONTRACT GRAPHIC DESIGNER who recommend patient return to her store team leader oncologist. Patient needs to start chemotherapy, which is typically done as outpatient. Nonetheless, I called her school bus attendant oncologist Dr. Maria Esther Francisco at [facility] and spoke with Sayda who will forward my information to Dr. Francisco. At the same time, Dr. Francisco paged me. She wants patient to go to [facility] under Hospital medicine on the Oncology floor. So, I called [phone] transfer center and spoke with Maricarmen who gave me a fax number [phone] to send patient face sheet. Then I called the floor to have them fax the facesheet. * CT abd/pelvis with contrast IMPRESSION: 1. There is been interval development of hepatic metastatic disease as well as carcinomatosis in the abdomen and pelvis. There is small amount of ascites most of which is in the pelvis. There is retroperitoneal adenopathy and mild iliac chain and pelvic side wall adenopathy. There is moderate right hydroureteronephrosis likely a result of retroperitoneal disease obstructing the ureter. There is significant intrahepatic biliary dilatation which appears to be a result of either an abnormal lymph node or implant region of the lizzie hepatis obstructing the proximal common duct. There is a small right pleural effusion. * Dr. Maria Esther Francisco Obstetrics & gynecology - gynecologic oncology [address] [place] [id number] Primary cancer of ovary with widespread metastatic disease/carcinomatosis: school bus attendant recommendation noted Liver metastases with obstruction: will need GI involved Right hydronephrosis due to metastatic ovarian cancer: treat the Ovarian, need chemotherapy DVT prophylaxis: SCD 10/13/19: Pt is obstructed due to Ovarian cancer, needs transfer to tertiary care center, awaiting Hospitalist to call back and accept. History Interval history: Patient was seen and examined. Follow-up on current diagnosis. Overnight uneventful as no events directly reported to me. Patient denies any chest pain, shortness breath, nausea/vomiting or severe headaches. Imaging, nursing note, chart, labs and old chart reviewed. Discussed with patient. Hospitalist Physical - Physical exam Narrative exam: Gen: chronic ill appearing, thin frial with faith muscle wasting, NAD, Awake, Alert, Orientated HEENT: NCAT, EOMI, PERRL, OP Clear Neck: supple, no adenopathy, no thyromegaly, no JVD CVS/Heart: RRR, normal S1S2, pulses present bilaterally Chest/Lungs: CTA B, Symmetrical chest expansion, good air entry bilaterally GI/Abdomen: soft Left side tender, +bowel sounds, no rebound /Bladder: no suprapubic tenderness, no CVA or paraspinal tenderness Extermity/Skin: no c/c/e, no obvious rash MSK: FROM x 4 Neuro: CN 2-12 grossly intact, no new focal deficits Psych: calm - Constitutional Vitals: Temp Pulse Resp BP Pulse Ox 98.2 F 85 20 137/91 99 10/13/19 12:24 10/13/19 12:24 10/13/19 12:24 10/13/19 12:24 10/13/19 12:24 Results - Labs CBC & Chem 7: 10/12/19 16:24 10/13/19 04:44 Labs: Laboratory Last Values WBC 7.6 K/mm3 (4.5-11.0) 10/12/19 16:24 RBC 4.04 M/mm3 (3.65-5.03) 10/12/19 16:24 Hgb 10.5 gm/dl (10.1-14.3) 10/12/19 16:24 Hct 31.5 % (30.3-42.9) 10/12/19 16:24 MCV 78 fl (79-97) L 10/12/19 16:24 MCH 26 pg (28-32) L 10/12/19 16:24 MCHC 33 % (30-34) 10/12/19 16:24 RDW 14.3 % (13.2-15.2) 10/12/19 16:24 Plt Count 459 K/mm3 (140-440) H 10/12/19 16:24 Add Manual Diff Complete 10/12/19 16:24 Total Counted 100 10/12/19 16:24 Seg Neuts % (Manual) 74.0 % (40.0-70.0) H 10/12/19 16:24 Band Neutrophils % 0 % 10/12/19 16:24 Lymphocytes % (Manual) 15.0 % (13.4-35.0) 10/12/19 16:24 Reactive Lymphs % (Man) 0 % 10/12/19 16:24 Monocytes % (Manual) 7.0 % (0.0-7.3) 10/12/19 16:24 Eosinophils % (Manual) 4.0 % (0.0-4.3) 10/12/19 16:24 Basophils % (Manual) 0 % (0.0-1.8) 10/12/19 16:24 Metamyelocytes % 0 % 10/12/19 16:24 Myelocytes % 0 % 10/12/19 16:24 Promyelocytes % 0 % 10/12/19 16:24 Blast Cells % 0 % 10/12/19 16:24 Nucleated RBC % Not Reportable 10/12/19 16:24 Seg Neutrophils # Man 5.6 K/mm3 (1.8-7.7) 10/12/19 16:24 Band Neutrophils # 0.0 K/mm3 10/12/19 16:24 Lymphocytes # (Manual) 1.1 K/mm3 (1.2-5.4) L 10/12/19 16:24 Abs React Lymphs (Man) 0.0 K/mm3 10/12/19 16:24 Monocytes # (Manual) 0.5 K/mm3 (0.0-0.8) 10/12/19 16:24 Eosinophils # (Manual) 0.3 K/mm3 (0.0-0.4) 10/12/19 16:24 Basophils # (Manual) 0.0 K/mm3 (0.0-0.1) 10/12/19 16:24 Metamyelocytes # 0.0 K/mm3 10/12/19 16:24 Myelocytes # 0.0 K/mm3 10/12/19 16:24 Promyelocytes # 0.0 K/mm3 10/12/19 16:24 Blast Cells # 0.0 K/mm3 10/12/19 16:24 WBC Morphology Not Reportable 10/12/19 16:24 Hypersegmented Neuts Not Reportable 10/12/19 16:24 Hyposegmented Neuts Not Reportable 10/12/19 16:24 Hypogranular Neuts Not Reportable 10/12/19 16:24 Smudge Cells Not Reportable 10/12/19 16:24 Toxic Granulation Not Reportable 10/12/19 16:24 Toxic Vacuolation Not Reportable 10/12/19 16:24 Dohle Bodies Not Reportable 10/12/19 16:24 Pelger-Huet Anomaly Not Reportable 10/12/19 16:24 Madhav Rods Not Reportable 10/12/19 16:24 Platelet Estimate Not Reportable 10/12/19 16:24 Clumped Platelets Not Reportable 10/12/19 16:24 Plt Clumps, EDTA Not Reportable 10/12/19 16:24 Large Platelets Not Reportable 10/12/19 16:24 Giant Platelets Not Reportable 10/12/19 16:24 Platelet Satelliting Not Reportable 10/12/19 16:24 Plt Morphology Comment Not Reportable 10/12/19 16:24 RBC Morphology Normal 10/12/19 16:24 Dimorphic RBCs Not Reportable 10/12/19 16:24 Polychromasia Not Reportable 10/12/19 16:24 Hypochromasia Not Reportable 10/12/19 16:24 Poikilocytosis Not Reportable 10/12/19 16:24 Anisocytosis Not Reportable 10/12/19 16:24 Microcytosis Not Reportable 10/12/19 16:24 Macrocytosis Not Reportable 10/12/19 16:24 Spherocytes Not Reportable 10/12/19 16:24 Pappenheimer Bodies Not Reportable 10/12/19 16:24 Sickle Cells Not Reportable 10/12/19 16:24 Target Cells Not Reportable 10/12/19 16:24 Tear Drop Cells Not Reportable 10/12/19 16:24 Ovalocytes Not Reportable 10/12/19 16:24 Helmet Cells Not Reportable 10/12/19 16:24 [place] Bodies Not Reportable 10/12/19 16:24 [place] Rings Not Reportable 10/12/19 16:24 Kirk Cells Not Reportable 10/12/19 16:24 Bite Cells Not Reportable 10/12/19 16:24 Crenated Cell Not Reportable 10/12/19 16:24 Elliptocytes Not Reportable 10/12/19 16:24 Acanthocytes (Spur) Not Reportable 10/12/19 16:24 Rouleaux Not Reportable 10/12/19 16:24 Hemoglobin C Crystals Not Reportable 10/12/19 16:24 Schistocytes Not Reportable 10/12/19 16:24 Malaria parasites Not Reportable 10/12/19 16:24 Jose Bodies Not Reportable 10/12/19 16:24 Hem Pathologist Commnt No 10/12/19 16:24 Sodium 134 mmol/L (137-145) L 10/13/19 04:44 Potassium 4.5 mmol/L (3.6-5.0) 10/13/19 04:44 Chloride 96.5 mmol/L (98-107) L 10/13/19 04:44 Carbon Dioxide 19 mmol/L (22-30) L 10/13/19 04:44 Anion Gap 23 mmol/L 10/13/19 04:44 BUN 9 mg/dL (7-17) 10/13/19 04:44 Creatinine 0.6 mg/dL (0.7-1.2) L 10/13/19 04:44 Estimated GFR > 60 ml/min 10/13/19 04:44 BUN/Creatinine Ratio 15 % 10/13/19 04:44 Glucose 93 mg/dL (65-100) 10/13/19 04:44 Calcium 9.0 mg/dL (8.4-10.2) 10/13/19 04:44 Total Bilirubin 8.20 mg/dL (0.1-1.2) H 10/13/19 04:44 AST 197 units/L (5-40) H 10/13/19 04:44 ALT 160 units/L (7-56) H 10/13/19 04:44 Alkaline Phosphatase 667 units/L (35-129) H 10/13/19 04:44 Total Protein 7.6 g/dL (6.3-8.2) 10/13/19 04:44 Albumin 3.0 g/dL (3.9-5) L 10/13/19 04:44 Albumin/Globulin Ratio 0.7 % 10/13/19 04:44 Urine Color Susie (Yellow) 10/12/19 15:55 Urine Turbidity Clear (Clear) 10/12/19 15:55 Urine pH 6.0 (5.0-7.0) 10/12/19 15:55 Ur Specific [place] 1.031 (1.003-1.030) H 10/12/19 15:55 Urine Protein 100 mg/dl mg/dL (Negative) 10/12/19 15:55 Urine Glucose (UA) Neg mg/dL (Negative) 10/12/19 15:55 Urine Ketones 20 mg/dL (Negative) 10/12/19 15:55 Urine Blood Neg (Negative) 10/12/19 15:55 Urine Nitrite Neg (Negative) 10/12/19 15:55 Urine Bilirubin Mod (Negative) 10/12/19 15:55 Urine Ictotest Positive (Negative) 10/12/19 15:55 Urine Urobilinogen 2.0 mg/dL (<2.0) 10/12/19 15:55 Ur Leukocyte Esterase Neg (Negative) 10/12/19 15:55 Urine WBC (Auto) 11.0 /HPF (0.0-6.0) H 10/12/19 15:55 Urine RBC (Auto) 107.0 /HPF (0.0-6.0) 10/12/19 15:55 U Epithel Cells (Auto) 1.0 /HPF (0-13.0) 10/12/19 15:55 Urine Bacteria (Auto) 1+ /HPF (Negative) 10/12/19 15:55 Urine Mucus 2+ /HPF 10/12/19 15:55 Urine HCG, Qual Negative (Negative) 10/12/19 15:55 Microbiology: Microbiology 10/12/19 15:55 Urine,Clean Catch Urine Culture - Preliminary NO GROWTH AFTER 24 HOURS 10/12/19 15:55 Vaginal Wet Prep - Final Wilson/IV: Voiding Method Toilet IV Catheter Type [Right INT / Saline Lock External Jugular] Active Medications - Current Medications Current Medications: Generic Name Dose Route Start Last Admin Trade Name Freq PRN Reason Stop Dose Admin Hydromorphone HCl 1 mg 10/12/19 18:45 10/13/19 12:33 Dilaudid IV 1 mg Q4H PRN Administration Pain , Severe (7-10) Ondansetron HCl 4 mg 10/12/19 18:47 Zofran IV Q8H PRN Nausea And Vomiting Oxycodone/Acetaminophen 1 tab 10/12/19 18:47 Percocet 5/325 PO Q6H PRN Pain, Moderate (4-6) Sodium Chloride 10 ml 10/12/19 22:00 10/13/19 10:23 Sodium Chloride Flush Syringe 10 Ml IV 10 ml BID ANIKA Administration Sodium Chloride 10 ml 10/12/19 18:47 10/13/19 04:48 Sodium Chloride Flush Syringe 10 Ml IV 10 ml PRN PRN Administration LINE FLUSH
[2019-10-14] MEDS: HYDROmorphone 1 MG/1 ML INJ IV PRN ×3 (04:30→12:26)
--- NOTE | 2019-10-14 08:49 | Progress Note ---
Assessment and Plan Assessment and plan: Patient is a 29 yo woman with a history of Ovarian Cancer and Self Mutilation who presents to [facility] ED with abdominal pains, back pains and vaginal discharge. Patient underwent CT scan of the abdomen and pelvis and was found to have metastatic disease to the liver secondary to ovarian cancer, as well as c arcinomatosis, acidosis, and vaginal discharge. Gynecology service consulted in ED. Patient placed in observation status and admitted to medical floor. Patient treated with IV fluid resuscitation therapy, pain control and supportive care. She was seen by QUALITY PROCESS AUDITOR who recommend patient return to her archeologist classical oncologist. Patient needs to start chemotherapy, which is typically done as outpatient. Nonetheless, I called her dyer helper oncologist Dr. Maria Esther Francisco at [facility] and spoke with Sayda who will forward my information to Dr. Francisco. At the same time, Dr. Francisco paged me. She wants patient to go to [facility] under Hospital medicine on the Oncology floor. So, I called [phone] transfer center and spoke with Maricarmen who gave me a fax number [phone] to send patient face sheet. Then I called the floor to have them fax the facesheet. * CT abd/pelvis with contrast IMPRESSION: 1. There is been interval development of hepatic metastatic disease as well as carcinomatosis in the abdomen and pelvis. There is small amount of ascites most of which is in the pelvis. There is retroperitoneal adenopathy and mild iliac chain and pelvic side wall adenopathy. There is moderate right hydroureteronephrosis likely a result of retroperitoneal disease obstructing the ureter. There is significant intrahepatic biliary dilatation which appears to be a result of either an abnormal lymph node or implant region of the lizzie hepatis obstructing the proximal common duct. There is a small right pleural effusion. * Dr. Maria Esther Francisco Obstetrics & gynecology - gynecologic oncology [address] [place] [phone] Primary cancer of ovary with widespread metastatic disease/carcinomatosis: dyer helper recommendation noted Liver metastases with obstruction: will need GI involved Right hydronephrosis due to metastatic ovarian cancer: treat the Ovarian, need chemotherapy DVT prophylaxis: SCD 10/13/19: Multiple calls from transfer line and Dr. Francisco. Basically [facility] had a bed, then lost the bed. I reached out to GI, Dr. Marx, who planned to do an ERCP in the morning, I made patient NPO after midnight. Then Sudhir albrecht called me back after speaking with Dr. Francisco and they found a bed at [facility], so I spoke with the Hospitalist there, and Dr. Garcia agreed to accept patient for transfer to [facility]. 10/14/2019: Transfer line called me last night around 7:30pm with Hospitalist Dr. Crawford from [facility], to inform me they wanted patient there and they now have a bed at [facility]. Patient was accepted to [facility] and then our night time nurse saw a NPO after midnight order and WRONGLY assumed that patient was going for ERCP in the morning, so patient lost the bed at [facility]. GI did not order an ERCP or see the patient because she was suppose to go to [facility]. So, I called the transfer line this morning and spoke with Ashley, who was very rude. Bottom line: Patient lost a bed at [facility], so we must start the very difficult process all over again. Then Bill called me, Transfer airline manager, to tell me they do not have a bed a [facility]. Then I call, Dr. Francisco and gave her update. Then I called Dr. Marx, our GI, he will see in consultation. [facility] transfer line, Ashley, called me back and said patient can go to [facility]. Patient needs to have the ERCP/obstruction evaluation at [facility] in case there are complications; then she needs chemotherapy (which is not done here). History Interval history: Patient was seen and examined. Follow-up on current diagnosis. Overnight uneventful as no events directly reported to me. Patient denies any chest pain, shortness breath, nausea/vomiting or severe headaches. Imaging, nursing note, chart, labs and old chart reviewed. Discussed with patient. Hospitalist Physical - Physical exam Narrative exam: Gen: chronic ill appearing, thin frial with pentecostalism muscle wasting, NAD, Awake, Alert, Orientated HEENT: NCAT, EOMI, PERRL, OP Clear Neck: supple, no adenopathy, no thyromegaly, no JVD CVS/Heart: RRR, normal S1S2, pulses present bilaterally Chest/Lungs: CTA B, Symmetrical chest expansion, good air entry bilaterally GI/Abdomen: soft Left side tender, +bowel sounds, no rebound /Bladder: no suprapubic tenderness, no CVA or paraspinal tenderness Extermity/Skin: no c/c/e, no obvious rash MSK: FROM x 4 Neuro: CN 2-12 grossly intact, no new focal deficits Psych: calm - Constitutional Vitals: Temp Pulse Resp BP Pulse Ox 98.2 F 98 H 14 130/81 100 10/14/19 04:03 10/14/19 04:03 10/14/19 04:03 10/14/19 04:03 10/14/19 04:03 General appearance: Absent: mild distress Results - Labs CBC & Chem 7: 10/12/19 16:24 10/14/19 09:38 Labs: Laboratory Last Values WBC 7.6 K/mm3 (4.5-11.0) 10/12/19 16:24 RBC 4.04 M/mm3 (3.65-5.03) 10/12/19 16:24 Hgb 10.5 gm/dl (10.1-14.3) 10/12/19 16:24 Hct 31.5 % (30.3-42.9) 10/12/19 16:24 MCV 78 fl (79-97) L 10/12/19 16:24 MCH 26 pg (28-32) L 10/12/19 16:24 MCHC 33 % (30-34) 10/12/19 16:24 RDW 14.3 % (13.2-15.2) 10/12/19 16:24 Plt Count 459 K/mm3 (140-440) H 10/12/19 16:24 Add Manual Diff Complete 10/12/19 16:24 Total Counted 100 10/12/19 16:24 Seg Neuts % (Manual) 74.0 % (40.0-70.0) H 10/12/19 16:24 Band Neutrophils % 0 % 10/12/19 16:24 Lymphocytes % (Manual) 15.0 % (13.4-35.0) 10/12/19 16:24 Reactive Lymphs % (Man) 0 % 10/12/19 16:24 Monocytes % (Manual) 7.0 % (0.0-7.3) 10/12/19 16:24 Eosinophils % (Manual) 4.0 % (0.0-4.3) 10/12/19 16:24 Basophils % (Manual) 0 % (0.0-1.8) 10/12/19 16:24 Metamyelocytes % 0 % 10/12/19 16:24 Myelocytes % 0 % 10/12/19 16:24 Promyelocytes % 0 % 10/12/19 16:24 Blast Cells % 0 % 10/12/19 16:24 Nucleated RBC % Not Reportable 10/12/19 16:24 Seg Neutrophils # Man 5.6 K/mm3 (1.8-7.7) 10/12/19 16:24 Band Neutrophils # 0.0 K/mm3 10/12/19 16:24 Lymphocytes # (Manual) 1.1 K/mm3 (1.2-5.4) L 10/12/19 16:24 Abs React Lymphs (Man) 0.0 K/mm3 10/12/19 16:24 Monocytes # (Manual) 0.5 K/mm3 (0.0-0.8) 10/12/19 16:24 Eosinophils # (Manual) 0.3 K/mm3 (0.0-0.4) 10/12/19 16:24 Basophils # (Manual) 0.0 K/mm3 (0.0-0.1) 10/12/19 16:24 Metamyelocytes # 0.0 K/mm3 10/12/19 16:24 Myelocytes # 0.0 K/mm3 10/12/19 16:24 Promyelocytes # 0.0 K/mm3 10/12/19 16:24 Blast Cells # 0.0 K/mm3 10/12/19 16:24 WBC Morphology Not Reportable 10/12/19 16:24 Hypersegmented Neuts Not Reportable 10/12/19 16:24 Hyposegmented Neuts Not Reportable 10/12/19 16:24 Hypogranular Neuts Not Reportable 10/12/19 16:24 Smudge Cells Not Reportable 10/12/19 16:24 Toxic Granulation Not Reportable 10/12/19 16:24 Toxic Vacuolation Not Reportable 10/12/19 16:24 Dohle Bodies Not Reportable 10/12/19 16:24 Pelger-Huet Anomaly Not Reportable 10/12/19 16:24 Madhav Rods Not Reportable 10/12/19 16:24 Platelet Estimate Not Reportable 10/12/19 16:24 Clumped Platelets Not Reportable 10/12/19 16:24 Plt Clumps, EDTA Not Reportable 10/12/19 16:24 Large Platelets Not Reportable 10/12/19 16:24 Giant Platelets Not Reportable 10/12/19 16:24 Platelet Satelliting Not Reportable 10/12/19 16:24 Plt Morphology Comment Not Reportable 10/12/19 16:24 RBC Morphology Normal 10/12/19 16:24 Dimorphic RBCs Not Reportable 10/12/19 16:24 Polychromasia Not Reportable 10/12/19 16:24 Hypochromasia Not Reportable 10/12/19 16:24 Poikilocytosis Not Reportable 10/12/19 16:24 Anisocytosis Not Reportable 10/12/19 16:24 Microcytosis Not Reportable 10/12/19 16:24 Macrocytosis Not Reportable 10/12/19 16:24 Spherocytes Not Reportable 10/12/19 16:24 Pappenheimer Bodies Not Reportable 10/12/19 16:24 Sickle Cells Not Reportable 10/12/19 16:24 Target Cells Not Reportable 10/12/19 16:24 Tear Drop Cells Not Reportable 10/12/19 16:24 Ovalocytes Not Reportable 10/12/19 16:24 Helmet Cells Not Reportable 10/12/19 16:24 [place] Bodies Not Reportable 10/12/19 16:24 [place] Rings Not Reportable 10/12/19 16:24 Kirk Cells Not Reportable 10/12/19 16:24 Bite Cells Not Reportable 10/12/19 16:24 Crenated Cell Not Reportable 10/12/19 16:24 Elliptocytes Not Reportable 10/12/19 16:24 Acanthocytes (Spur) Not Reportable 10/12/19 16:24 Rouleaux Not Reportable 10/12/19 16:24 Hemoglobin C Crystals Not Reportable 10/12/19 16:24 Schistocytes Not Reportable 10/12/19 16:24 Malaria parasites Not Reportable 10/12/19 16:24 Jose Bodies Not Reportable 10/12/19 16:24 Hem Pathologist Commnt No 10/12/19 16:24 Sodium 134 mmol/L (137-145) L 10/13/19 04:44 Potassium 4.5 mmol/L (3.6-5.0) 10/13/19 04:44 Chloride 96.5 mmol/L (98-107) L 10/13/19 04:44 Carbon Dioxide 19 mmol/L (22-30) L 10/13/19 04:44 Anion Gap 23 mmol/L 10/13/19 04:44 BUN 9 mg/dL (7-17) 10/13/19 04:44 Creatinine 0.6 mg/dL (0.7-1.2) L 10/13/19 04:44 Estimated GFR > 60 ml/min 10/13/19 04:44 BUN/Creatinine Ratio 15 % 10/13/19 04:44 Glucose 93 mg/dL (65-100) 10/13/19 04:44 Calcium 9.0 mg/dL (8.4-10.2) 10/13/19 04:44 Total Bilirubin 8.20 mg/dL (0.1-1.2) H 10/13/19 04:44 AST 197 units/L (5-40) H 10/13/19 04:44 ALT 160 units/L (7-56) H 10/13/19 04:44 Alkaline Phosphatase 667 units/L (35-129) H 10/13/19 04:44 Total Protein 7.6 g/dL (6.3-8.2) 10/13/19 04:44 Albumin 3.0 g/dL (3.9-5) L 10/13/19 04:44 Albumin/Globulin Ratio 0.7 % 10/13/19 04:44 Urine Color Susie (Yellow) 10/12/19 15:55 Urine Turbidity Clear (Clear) 10/12/19 15:55 Urine pH 6.0 (5.0-7.0) 10/12/19 15:55 Ur Specific [place] 1.031 (1.003-1.030) H 10/12/19 15:55 Urine Protein 100 mg/dl mg/dL (Negative) 10/12/19 15:55 Urine Glucose (UA) Neg mg/dL (Negative) 10/12/19 15:55 Urine Ketones 20 mg/dL (Negative) 10/12/19 15:55 Urine Blood Neg (Negative) 10/12/19 15:55 Urine Nitrite Neg (Negative) 10/12/19 15:55 Urine Bilirubin Mod (Negative) 10/12/19 15:55 Urine Ictotest Positive (Negative) 10/12/19 15:55 Urine Urobilinogen 2.0 mg/dL (<2.0) 10/12/19 15:55 Ur Leukocyte Esterase Neg (Negative) 10/12/19 15:55 Urine WBC (Auto) 11.0 /HPF (0.0-6.0) H 10/12/19 15:55 Urine RBC (Auto) 107.0 /HPF (0.0-6.0) 10/12/19 15:55 U Epithel Cells (Auto) 1.0 /HPF (0-13.0) 10/12/19 15:55 Urine Bacteria (Auto) 1+ /HPF (Negative) 10/12/19 15:55 Urine Mucus 2+ /HPF 10/12/19 15:55 Urine HCG, Qual Negative (Negative) 10/12/19 15:55 Microbiology: Microbiology 10/12/19 15:55 Urine,Clean Catch Urine Culture - Preliminary Wilson/IV: Voiding Method Toilet IV Catheter Type [Right INT / Saline Lock External Jugular] Active Medications - Current Medications Current Medications: Generic Name Dose Route Start Last Admin Trade Name Freq PRN Reason Stop Dose Admin Hydromorphone HCl 1 mg 10/12/19 18:45 10/14/19 04:30 Dilaudid IV 1 mg Q4H PRN Administration Pain , Severe (7-10) Ondansetron HCl 4 mg 10/12/19 18:47 Zofran IV Q8H PRN Nausea And Vomiting Oxycodone/Acetaminophen 1 tab 10/12/19 18:47 Percocet 5/325 PO Q6H PRN Pain, Moderate (4-6) Sodium Chloride 10 ml 10/12/19 22:00 10/13/19 21:27 Sodium Chloride Flush Syringe 10 Ml IV 10 ml BID ANIKA Administration Sodium Chloride 10 ml 10/12/19 18:47 10/13/19 21:27 Sodium Chloride Flush Syringe 10 Ml IV 10 ml PRN PRN Administration LINE FLUSH
[2019-10-14 10:42] LABS: Alanine Aminotransferase 159 units/L (7-56); Albumin 3.2 g/dL (3.9-5); BUN/Creatinine Ratio 14; Blood Urea Nitrogen 7 mg/dL (7-17); Calcium 9.1 mg/dL (8.4-10.2); Hemolysis Index 2
[2019-10-14 12:39] VITALS: BP 141/86
== END 2019-10-14 12:50 | disposition short-term general hospital (02) | DRG 755 ==
LOC: ED 15:18 → 4A 18:47 → OBSVTOIN 10-13 12:00
PROVIDERS: ADMIT Internal Medicine; ATTEND Internal Medicine
DX: C56.9 Malignant neoplasm of unspecified ovary (principal); N13.30 Unspecified hydronephrosis; R17 Unspecified jaundice; C78.7 Secondary malignant neoplasm of liver and intrahepatic bile duct; E87.2 Acidosis; N39.0 Urinary tract infection, site not specified; N89.8 Other specified noninflammatory disorders of vagina; Z90.710 Acquired absence of both cervix and uterus; Z72.89 Other problems related to lifestyle
CPT/HCPCS: 36415; 74177; 80053; 81001; 81025; 85007; 85025; 87086; 87210; 87591; G0378; J1170; J1956; J2405; J3010; J7030; Q9967